=== PATIENT | male | born 1990 | race Caucasian/White ===

== ENCOUNTER 2017-05-19 19:10 | Emergency (ER) | payer OTHER ==
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
[2017-05-19 20:04] VITALS: BP 123/73; PULSE 52; RESP 18; TEMP 98.6; O2SAT 97
== END 2017-05-19 20:08 | disposition home or self-care (01) ==
PROC: 0RSWXZZ Reposition Right Finger Phalangeal Joint, External Approach (ICD-10-PCS; principal; 2017-05-19)
DX: S63.284A Dislocation of proximal interphalangeal joint of right ring finger, initial encounter (principal); W23.1XXA Caught, crushed, jammed, or pinched between stationary objects, initial encounter; Y99.8 Other external cause status; Y93.67 Activity, basketball
CPT/HCPCS: L3925